=== PATIENT | male | born 1960 | race Caucasian/White ===

== ENCOUNTER → 2020-02-02 10:08 | Outpatient (CLI) | payer BC, SELFPAY ==
--- NOTE | ~2020-02-02 | CT_ITS ---
EXAMINATION: CT chest w con DATE: 02/02/2020 10:49 INDICATION: Abdominal lymphadenopathy. History of psoriasis. TECHNIQUE: Computed tomography (CT) of the chest was performed with 75 cc Omnipaque 350 intravenous c ontrast. Automated exposure control and iterative reconstruction technique were employed. Exam dose: 402.85 mGy-cm total exam DLP. COMPARISON: None FINDINGS: There is mild discoid atelectasis or scarring at the lung bases, most prominent in the post erior right lower lobe. No pulmonary mass or consolidation. There is a small sliding hiatal hernia. Normal heart size. No pericardial or pleural effusion. No thoracic aortic aneurysm or dissection. No hilar or mediastinal mass lesion or lymphadenopathy. 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 Diffuse idiopathic skeletal hyperostosis. IMPRESSION: No thoracic lymphadenopathy Small sliding hiatal hernia Presumed left thyroid lobectomy Reviewed, dictated and finalized at [facility]. Reviewed, dictated and finalized at [facility]. [facility]ER
[2020-02-02 10:31] LABS: Estimated Glomerular Filt Rate > 60
== END ==
PROVIDERS: PCP Family Medicine; Visit Provider Internal Medicine Hematology & Oncology
DX: R59.0 Localized enlarged lymph nodes (principal); K44.9 Diaphragmatic hernia without obstruction or gangrene
CPT/HCPCS: 36415; 71260; Q9967

== ENCOUNTER 2020-08-07 08:02 | Outpatient (CLI) | payer BC, SELFPAY ==
--- NOTE | ~2020-08-07 | CT_ITS ---
EXAMINATION: CT abdomen pelvis w con DATE: 08/07/2020 08:58 INDICATION: Abdominal and pelvic lymphadenopathy TECHNIQUE: Computed tomography (CT) of the abdomen and pelvis was performed without intravenous contr ast. Automated exposure control and iterative reconstruction technique were employed. Exam dose: 931 .69 mGy-cm total exam DLP. COMPARISON: None. FINDINGS: Mild discoid atelectasis or more likely scarring in the posterior right lung base. Normal heart size. No pericardial or pleural effusion. Very small sliding hiatal hernia. 3 mm nonobstructing renal calculus. 1.3 cm left renal cyst and very small probable lower pole right renal cyst; otherwise no hepatic, spl enic, pancreatic, and adrenal or renal space-occupying mass lesion is detected. The gallbladder is pr esent. No bile duct or pancreatic duct dilatation. Normal appendix. There are multiple diverticula of the left colon; no evidence of diverticulitis. No bowel obstruction, bowel wall thickening or pneumatosis or intraperitoneal free air. There is prostate enlargement. The urinary bladder is unremarkable. Diffuse idiopathic skeletal hyperostosis of the thoracic spine. No suspicious osteolytic or osteoblastic lesions are noted. IMPRESSION: Very small sliding hiatal hernia Renal cysts Diverticulosis of the left colon; no evidence of diverticulitis Prostate enlargement Reviewed, dictated and finalized at [facility]. Reviewed, dictated and finalized at [facility].
[2020-08-07 08:49] LABS: Estimated Glomerular Filt Rate > 60
== END 2020-08-07 08:03 | disposition home or self-care (01) ==
PROVIDERS: PCP Family Medicine; Visit Provider Internal Medicine Hematology & Oncology
DX: R59.0 Localized enlarged lymph nodes (principal); N28.1 Cyst of kidney, acquired; N40.0 Benign prostatic hyperplasia without lower urinary tract symptoms; K57.30 Diverticulosis of large intestine without perforation or abscess without bleeding; K44.9 Diaphragmatic hernia without obstruction or gangrene
CPT/HCPCS: 74177; Q9967